=== PATIENT | female | born 1955 ===

== ENCOUNTER 2018-10-12 20:27 | Observation (INO) ==
[2018-10-13] MEDS ORDERED: Naloxone 0.4 MG/ML INJ IVP PRN (00:24)
--- NOTE | 2018-10-13 00:28 | Internal Med History&Physical ---
<Luigi Hughes S - Last Filed: 10/13/18 00:26> Date of Encounter: 10/13/18 Time of Encounter: 00:26 Internal Medicine - H&P: HPI Chief complaint: hematuria Admitted From: Emergency Dept Plans for Post Hospital Care: Home History of present illness: Ms. Boggs is a 63 year old female with a PMH of blood clots as a [facility] transfer.She initially presented to [facility] ER after noticing blood in her urine starting this morning. She initially sukhjinder to her [employer] about two weeks ago and was diagnosed with a UTI, she was treated with nitrofurantion. She has had on and off blood clots x 2 weeks in the urine, gektting worse this morning. She states that the day after her UTIwas diagnosed she fell asleep and when she woke up, her varicose vein was real hard. She went to the ER and found out that she was developing a blood clot in the left leg. She was then started on lovenox and warfarin. She accidentally mixed up the medications and took the coumadin twice daily, when she was supposed to only take it once and was taking the shots once instead of twice. She realized what shedid about two days ago and contacted her PCP. She currently does report some mild abdominal pressure and decreased urine output with blood clots when she is able to pee. She denies fevers/chills, nausea/vomiting/diarrhea, or chest pain/sob. She was found to have a supratheraputic INR at the ER and was transfe rred to [facility] for further management. She is noted to be hemodynamically stable and has no evidence for active bleeding. She denies noseblleds, gum bleeding, or bleeding when bowel movements. Past Med Surg Social Fam HX - Past Medical History Medical history: DVT Additional medical history: ectopic x2 Psychiatric history: no psych history - Social History Smoking Status: Never smoker Smokeless Tobacco Status: No Alcohol use: none Drug use: none - Family History Mother Living Status: Still Living Hx Family Cardiac Disorders: Yes (htn) Father Living Status: Hx Family Endocrine Disorder: Yes (DM2) Internal Medicine - H&P: Meds Calcium Carbonate [Calcium] 500 mg PO DAILY 10/12/18 [History] Coumadin 10/12/18 [History] Magnesium Oxide [Magnesium] 500 mg PO DAILY 10/12/18 [History] Allergy/AdvReac Type Severity Reaction Status Date / Time No Known Allergies Allergy Verified 10/12/18 15:51 All Systems PM: A 10-system review of systems was performed and is negative for pertinent findings except as documented above in the HPI. - Constitutional Constitutional: no anorexia, no chills, no fever(s) - EENT Eyes: no blurry vision, no change in vision Ears: no tinnitus Nose, mouth and throat: no bleeding gums, no epistaxis - Cardiovascular Cardiovascular ROS IM: no chest pain, no dyspnea, no dyspnea on exertion - Respiratory Respiratory: no cough, no dyspnea, no dyspnea on exertion - Gastrointestinal Gastrointestinal: abdominal pain, no diarrhea, no nausea, no vomiting - Genitourinary Genitourinary: hematuria, no dysuria - Musculoskeletal Musculoskeletal ROS IM: no stiffness, no tingling - Integumentary Integumentary IM: no new lesions, no unusual bruising - Neurological Neurological ROS: no numbness, no tingling - Psychiatric Psychiatric: no anxiety, no depression - Endocrine Endocrine IM: no fatigue - Hematologic/Lymphatic Hematologic/Lymphatic: no easy bleeding, no easy bruising - Constitutional Vitals: Temp Pulse Resp BP Pulse Ox 97.6 F 69 17 159/89 95 10/13/18 00:22 10/13/18 00:22 10/13/18 00:22 10/13/18 00:22 10/13/18 00:22 Exam: general - NAD, AOX3, cooperative and comfortable heent - ncat, MMM, no scleral icterus neck - no nvd, supple cardio - rrr, s1s2 cta lungs - ctab, no wheeze/rhonchi/rales, not in respiratory distress abd - soft, nontender, nondistended, no rebound or guarding, pt has midline scar mild bruising noed to the abd from lovenox shots extremities - moves all extremities equally bilaterally has varicose veins on the LE strength 5/5; calves are equal size and symmetry neuro - no FND, strength and sensation intact, CN2-12 grossly intact psych - appropriate mood and affect skin - warm, dry intact; varicose veins bilaterally - Assessment and Plan (1) Supratherapeutic INR Current Visit: Yes Status: Acute Assessment and plan: Pt reportedly took coumadin BID and lovenox one time daily instead of vice versa; she mixed up her meds x 1 week - started on blood thinners 10/05 for acute DVT noted on imaging - pt remains hemodynamically stable with stable H&H 10/04: Venous duplex ultrasound Normal left lower extremity deep venous exam. Acute superficial venous thrombosis is present in the left greater saphenous vein. Normal contralateral common femoral vein 10/12/: CT abd/pelvis from [place] No noncontrast evidence of acute intra-abdominopelvic inflammatory process or fluid collection. Initial INR 7.3, decreased from 10.4 on 10/10 Plan: - hold coumadin and lovenox - urology consulted for hemturia - PT/INR in AM - cbc/bmp in AM - will hold off on vitamin K for now, pt has no active signs of bleeding - FEN: regular diet - DVT prophylaxis: scd - dispo: inpatient monitoring of INR to a theraputic level, urology workup (2) Hematuria Current Visit: No Status: Acute Assessment and plan: Likely secondary to coumadin toxicity. Pt hemodynamically stable. Urology consulted, continuous wave operator urologist aware of the pt. Urine cx pending. Will hold off on abx at this time, pt has no white count or fever. Qualifiers: Hematuria type: gross Qualified Code(s): R31.0 - Gross hematuria (3) Warfarin toxicity Current Visit: No Status: Acute Assessment and plan: See above for supratheraputic INR. Qualifiers: Encounter type: initial encounter Injury intent: accidental or unintentional Qualified Code(s): T45.511A - Poisoning by anticoagulants, accidental (unintentional), initial encounter (4) DVT prophylaxis Current Visit: No Status: Acute Assessment and plan: scd (5) History of DVT (deep vein thrombosis) Current Visit: Yes Status: Acute Assessment and plan: Evidenced on duplex US. Lovenox and coumadin held as above. (6) Obesity Current Visit: No Status: Acute Assessment and plan: bmi 34.8, chronic, counseled. Qualifiers: Obesity type: due to excess calories Obesity classification: adult class 1 (BMI 30 - 34.9) Serious obesity comorbidity presence: without serious comorbidity Body mass index: BMI 34.0-34.9 Qualified Code(s): E66.09 - Other obesity due to excess calories; Z68.34 - Body mass index (BMI) 34.0-34.9, adult - Time Spent With Patient Total time spent is greater than 50% in coordination of care (as documented) at patient's floor/unit and/or counseling patient: 25 - 35 minutes <Frank Arora - Last Filed: 10/13/18 05:16> Date of Encounter: 10/13/18 Internal Medicine - H&P: HPI History of present illness: Ms. Boggs is a 63 year old female All Systems PM: A 10-system review of systems was performed and is negative for pertinent findings except as documented above in the HPI. - Constitutional Vitals: Temp Pulse Resp BP Pulse Ox 98.2 F 62 14 171/72 98 10/13/18 02:59 10/13/18 02:59 10/13/18 02:59 10/13/18 02:59 10/13/18 02:59 - Assessment and Plan (1) Hematuria Current Visit: No Status: Acute Qualifiers: Hematuria type: gross Qualified Code(s): R31.0 - Gross hematuria (2) Warfarin toxicity Current Visit: No Status: Acute Qualifiers: Encounter type: initial encounter Injury intent: accidental or unintentional Qualified Code(s): T45.511A - Poisoning by anticoagulants, accidental (unintentional), initial encounter (3) DVT prophylaxis Current Visit: No Status: Acute (4) Supratherapeutic INR Current Visit: Yes Status: Acute (5) History of DVT (deep vein thrombosis) Current Visit: Yes Status: Acute (6) Obesity Current Visit: No Status: Acute Qualifiers: Obesity type: due to excess calories Obesity classification: adult class 1 (BMI 30 - 34.9) Serious obesity comorbidity presence: without serious comorbidity Body mass index: BMI 34.0-34.9 Qualified Code(s): E66.09 - Other obesity due to excess calories; Z68.34 - Body mass index (BMI) 34.0-34.9, adult - Time Spent With Patient Total time spent is greater than 50% in coordination of care (as documented) at patient's floor/unit and/or counseling patient: - Attending Attestation I saw and evaluated the patient. I reviewed the residents note, performed my own physical examination and agree with findings and plan as documented in the residents note. Patient seen and examined on 10/13/18. Patient presented to the [place] emergency room initially with hematuria. She has elevated INR due to Coumadin toxicity. INR has come down since initial values. Hemodynamically stable, patient is currently resting comfortably in hospital bed in no acute distress. Will obtain repeat CBC, and will consider vitamin K if repeat hemoglobin continues to worsen. We will avoid vitamin K for now as to prevent further difficulty managing her Coumadin. Urology consult in the morning, notified from [place] emergency room.
[2018-10-13 09:06] LABS: Hematocrit 46.2 % (35.3-44.9); Mean Corpuscular HGB Conc 32.5 g/dL (31.6-35.5); Mean Corpuscular Volume 95.5 fL (83.0-100.0); Mean Platelet Volume 10.3 fL (9.4-12.4); Platelet Count 198 K/mcL (140-400); Red Blood Count 4.84 M/mcL (3.82-4.97); Red Cell Distribution Width 12.6 % (11.5-14.5)
[2018-10-13 09:21] LABS: BUN/Creatinine Ratio 18 (6-26); Blood Urea Nitrogen 16 mg/dL (8-23); Calcium 9.7 mg/dL (8.6-10.3); Carbon Dioxide 30 mEq/L (23-29); Chloride 104 mEq/L (98-107); Glucose 101 mg/dL (70-105); Osmolality,Calculated 289 (280-300); Potassium 4.3 mEq/L (3.5-5.1); Sodium 139 mEq/L (136-145); eGFR For Non-African Americans > 60 (> 60)
--- NOTE | 2018-10-13 09:22 | Urology - Consult Note ---
Date of Encounter: 10/13/18 Time of Encounter: 09:20 - Assessment and Plan (1) Gross hematuria Current Visit: Yes Status: Acute Assessment and plan: The gross hematuria was likely caused by the supratherapeutic INR. It appears t he hematuria is clearing as her INR is decreasing. As discussed with the emergency room physician yesterday I do not feel that a urinary catheter or CBI is necessary. No urologic intervention required at this time. Hopefully her urine will completely clear when she reaches therapeutic INR levels. We discussed the unlikely possibility that the gross hematuria could be coming from a urologic malignancy. The CT scan done at [place] was noncontrast. I recommend follow-up with urology on a nonurgent basis. We will recheck a urinalysis at that time. If she continues to have microscopic hematuria will consider a formal hematuria workup to rule out malignancy. She is comfortable with this plan and wishes to be conservative at this time. Urology CN:HPI Consult date: 10/13/18 Reason for consult Urology: Gross Hematuria History of present illness: New patient to the urology service. Patient on anticoagulation for DVT. INR supratherapeutic and the last few days and states she began to develop gross hematuria over the last few days. She states she passed a few clots but has not had any symptoms of retention. She does have occasional urinary tract infections which have been an issue. CT scan without contrast showed no significant clot retention or any other evidence of malignancy. She states her urine has started to clear today and has gone from opaque maroon/red to transparent red. She is still voiding without difficulty and does not have a catheter Past Med Surg Social Fam HX - Past Medical History Medical history: DVT Additional medical history: ectopic x2 Psychiatric history: no psych history - Social History Smoking Status: Never smoker Smokeless Tobacco Status: No Alcohol use: none Drug use: none - Family History Mother Living Status: Still Living Hx Family Cardiac Disorders: Yes (htn) Father Living Status: Hx Family Endocrine Disorder: Yes (DM2) Medications and Allergies Calcium Carbonate [Calcium] 500 mg PO DAILY 10/12/18 [History] Coumadin 10/12/18 [History] Magnesium Oxide [Magnesium] 500 mg PO DAILY 10/12/18 [History] Allergy/AdvReac Type Severity Reaction Status Date / Time No Known Allergies Allergy Verified 10/12/18 15:51 Review of Systems - Constitutional no chills, no fever(s) - EENT Nose, mouth and throat: no dizziness - Cardiovascular no chest pain - Respiratory no cough - Gastrointestinal no abdominal pain, no nausea - Genitourinary Genitourinary: hematuria, no dysuria, no flank pain - Musculoskeletal no back pain - Integumentary no erythema - Neurological no confusion - Psychiatric no anxiety - Hematologic/Lymphatic no easy bleeding - Allergic/Immunologic no throat swelling Exam Initial Vital Signs Temp Pulse Resp BP Pulse Ox 97.6 F 69 17 159/89 95 10/13/18 00:22 10/13/18 00:22 10/13/18 00:22 10/13/18 00:22 10/13/18 00:22 - General physical appearance Present: well developed, no distress - Eyes Present: PERRL, conjunctiva is clear - ENT Present: normal nares - Neck Present: no masses - Respiratory Present: normal respiratory effort - Cardiovascular Cardiovascular exam IM: RRR - Abdomen Abdomen: Present: soft. Absent: suprapubic tenderness - Integumentary Absent: no rash, no growths, no abnormal pigmentation - Neurologic Present: normal coordination. Absent: disoriented, confused - Additional Findings No obvious CVA tenderness Urology Results - Labs 10/13/18 08:19 Abnormal lab results Hct 46.2 % (35.3-44.9) H 10/13/18 08:19 All other labs normal. Consult Discharge Plan - Plan Referrals: Eva Quinn APN [Primary Care Provider] -
[2018-10-13 09:34] LABS: Prothrombin Time 56.6 Seconds (9.4-12.1)
[2018-10-13 11:42] VITALS: BP 125/75
--- NOTE | 2018-10-13 12:31 | Discharge Summary ---
- NOTES TO OUTPATIENT PROVIDER Notes to Outpatient Provider: Patient hospitalized with supratherapeutic INR and hematuria. INR is trending down. Recommend to hold Coumadin for 2 more days and recheck INR before resuming. She is on Coumadin for DVT. Hematuria also improving. She was evaluated by urology and recommended outpatient follow-up. Date of Encounter: 10/13/18 Time of Encounter: 12:29 - Discharge Diagnosis (1) Hematuria Priority: Primary Status: Acute Qualifiers: Hematuria type: gross Qualified Code(s): R31.0 - Gross hematuria (2) Warfarin toxicity Priority: Secondary Status: Acute Qualifiers: Encounter type: initial encounter Injury intent: accidental or unintentional Qualified Code(s): T45.511A - Poisoning by anticoagulants, accidental (unintentional), initial encounter (3) DVT prophylaxis Priority: Secondary Status: Acute (4) Supratherapeutic INR Priority: Secondary Status: Acute (5) History of DVT (deep vein thrombosis) Priority: Secondary Status: Acute (6) Obesity Priority: Secondary Status: Acute Qualifiers: Obesity type: due to excess calories Obesity classification: adult class 1 (BMI 30 - 34.9) Serious obesity comorbidity presence: without serious comorbidity Body mass index: BMI 34.0-34.9 Qualified Code(s): E66.09 - Other obesity due to excess calories; Z68.34 - Body mass index (BMI) 34.0-34.9, adult Hospital course: Ms. Boggs is a 63 year old female Patient hospitalized with supratherapeutic INR and hematuria. INR is trending down. Recommend to hold Coumadin for 2 more days and recheck INR before resuming. She is on Coumadin for DVT. Hematuria also improving. She was evaluated by urology and recommended outpatient follow- up. Discharge discussed with: patient - Time Spent with Patient Total time spent providing and/or coordinating discharge services: Time spent: Less than 30 minutes (15 min) - Discharge Medications Prescriptions: Continued Magnesium Oxide [Magnesium] 500 mg PO DAILY Calcium Carbonate [Calcium] 500 mg PO DAILY Coumadin Home Medications: Calcium Carbonate [Calcium] 500 mg PO DAILY 10/12/18 [History] Coumadin 10/12/18 [History] Magnesium Oxide [Magnesium] 500 mg PO DAILY 10/12/18 [History] Allergies/Adverse Reactions: Allergy/AdvReac Type Severity Reaction Status Date / Time No Known Allergies Allergy Verified 10/12/18 15:51 Date of admission: 10/13/18 00:08 Primary care physician: Eva Quinn APN Consults: 10/13/18 00:24 Consult to Urology [CONS] Routine Consulting Provider: Carmencitay Agnieszka Reason for Consult: hematuria Call Completed: Yes Discharging clinician: Eloy White Anticipated date of discharge: 10/13/18 - Constitutional Vitals: Temp Pulse Resp BP Pulse Ox 98.4 F 69 16 125/75 96 10/13/18 11:39 10/13/18 11:39 10/13/18 11:39 10/13/18 11:39 10/13/18 11:39 General appearance: Present: cooperative, A&O X 3, answers questions appropriately Exam: . - Respiratory Respiratory exam: Present: CTAB. Absent: accessory muscle use, rales, rhonchi, wheezes - Cardiovascular Cardiovascular exam: Present: RRR, +S1, +S2. Absent: diastolic murmur, gallop, rubs, systolic murmur - Patient Status Disposition: Home, Self-Care Condition: Good Functional capacity at discharge: independent ambulation Overall status at discharge: patient is progressing back to baseline - Discharge Instructions Follow Up With: Eva Quinn APN [Primary Care Provider] - (In 1-2 weeks) Lico Smith MD [Partnered Physician] - (In 1-2 weeks) Additional Instructions: Please continue to hold Coumadin until Monday and recheck INR and resume Coumadin based on INR. - Diet and Activity Activity: increase activity as tolerated Diet: low fat, low cholesterol, low salt diet
== END 2018-10-13 14:17 | disposition home or self-care (01) ==
LOC: 3ANU → SUATTDRO 10-13 00:08
PROVIDERS: ADMIT Family Medicine; ATTEND Internal Medicine